=== PATIENT | female | born 1940 | race Caucasian/White ===

== ENCOUNTER → 2016-10-24 | Outpatient (CLI) | payer MEDICARE, BC ==
--- NOTE | 2016-10-24 11:42 | XR ---
EXAMINATION TYPE: XR chest 2V DATE OF EXAM: 10/24/2016 11:33 AM COMPARISON: 11/23/2015 TECHNIQUE: PA and lateral views submitted. HISTORY: Pneumonia FINDINGS: The lungs are clear and there is no pneumothorax, pleural effusion, or focal pneumonia. Hypertrophic and degenerative change spine noted. IMPRESSION: 1. No acute process.
== END ==
LOC: RADXRMAIN 11:12
PROVIDERS: ATTEND Family Medicine
DX: J18.9 Pneumonia, unspecified organism (principal)
CPT/HCPCS: 71020

== ENCOUNTER 2017-03-18 13:55 | Inpatient (IN) | payer MEDICARE, BC ==
[2017-03-18] MEDS ORDERED: IPRATROPIUM 0.5 MG/2.5 ML NEBU INHALATION STA (14:14)
[2017-03-18] MEDS ORDERED: SODIUM CHLORIDE 0.9% 1,000 ML IV STA ×2 (14:14)
[2017-03-18] MEDS ORDERED: ALBUTEROL NEBULIZED 2.5 MG/3 ML INHALATION STA (14:14)
[2017-03-18] MEDS ORDERED: methylPREDNISolone SOD SUCCI 125 MG/2 ML VIAL IV STA (14:16)
--- NOTE | 2017-03-18 14:16 | ED ---
General Adult HPI - General Chief complaint: Shortness of Breath Stated complaint: asthma Time Seen by Provider: 03/18/17 14:13 Source: patient, RN notes reviewed, old records reviewed Mode of arrival: wheelchair Limitations: no limitations - History of Present Illness Initial comments: This is a 76-year-old female earlier today for evaluation of shortness of breath. She was with cough and congestion, history of asthma history of COPD. Patient denies fever does admit to increased cough. No modifying medical no modifying medications at this time. No travel history. Patient has no recent hospital physicians, symptoms for about 2-3 days per family. Patient does have a history of pneumonia with difficult to control asthma and difficulty clear pneumonia. - Related Data Home Medications Medication Instructions Recorded Confirmed Levothyroxine Sodium [Synthroid] 137 mcg PO DAILY 09/22/15 03/18/17 metFORMIN HCL [Glucophage] 1,000 mg PO BID-W/MEALS 09/22/15 03/18/17 Hydrochlorothiazide 25 mg PO DAILY 11/02/15 03/18/17 Albuterol Inhaler [Ventolin Hfa 2 puff INHALATION RT-QID PRN 03/18/17 03/18/17 Inhaler] Albuterol Nebulized [Ventolin 2.5 mg INHALATION RT-TID 03/18/17 03/18/17 Nebulized] Bimatoprost [Lumigan .01% Ophth 1 drop RIGHT EYE HS 03/18/17 03/18/17 Soln] Diclofenac 0.1% Ophth Soln 1 drop LEFT EYE QID 03/18/17 03/18/17 [Voltaren 0.1% Ophth Soln] Ibuprofen [Motrin] 200 mg PO Q6HR PRN 03/18/17 03/18/17 diphenhydrAMINE HCL [Benadryl] 25 mg PO HS PRN 03/18/17 03/18/17 glipiZIDE XL [Glucotrol Xl] 5 mg PO BID 03/18/17 03/18/17 Allergies Allergy/AdvReac Type Severity Reaction Status Date / Time Sulfa (Sulfonamide Allergy Severe Anaphylaxis Verified 03/18/17 15:01 Antibiotics) tetanus and diphtheria Allergy Anaphylaxis Verified 03/18/17 15:01 toxoids Review of Systems ROS Statement: Those systems with pertinent positive or pertinent negative responses have been documented in the HPI. ROS Other: All systems not noted in ROS Statement are negative. Past Medical History Past Medical History: Asthma, Diabetes Mellitus, Eye Disorder, Osteoarthritis ( OA), Thyroid Disorder Additional Past Medical History / Comment(s): GLAUCOMA, BACK PAIN, SINUS PROBLEMS, PAST HX OF VERTIGO. History of Any Multi-Drug Resistant Organisms: None Reported Past Surgical History: Appendectomy, Hysterectomy, Joint Replacement Additional Past Surgical History / Comment(s): THYROIDECTOMY, RIGHT TOTAL HIP. ( L) eye surgery with stent. Past Anesthesia/Blood Transfusion Reactions: Motion Sickness, Postoperative Nausea & Vomiting (PONV) Additional Past Anesthesia/Blood Transfusion Reaction / Comment(s): DAUGHTER= PONV. DAUGHTER HAD PROBLEM WITH BLOOD TRANSFUSION BUT DOES NOT KNOW WHAT-HAD TO FOLLOW WITH RESAW OPERATOR. Past Psychological History: No Psychological Hx Reported Smoking Status: Never smoker - Past Family History Mother Family Medical History: No Reported History General Exam Limitations: no limitations General appearance: alert, in no apparent distress, anxious Head exam: Present: atraumatic, normocephalic, normal inspection Eye exam: Present: normal appearance, PERRL, EOMI. Absent: scleral icterus, conjunctival injection, periorbital swelling ENT exam: Present: normal exam, mucous membranes moist Neck exam: Present: normal inspection. Absent: tenderness, meningismus, lymphadenopathy Respiratory exam: Present: normal lung sounds bilaterally, wheezes, accessory muscle use, decreased breath sounds, prolonged expiratory. Absent: respiratory distress, rales, rhonchi, stridor Cardiovascular Exam: Present: regular rate, normal rhythm, normal heart sounds. Absent: systolic murmur, diastolic murmur, rubs, gallop, clicks GI/Abdominal exam: Present: soft, normal bowel sounds. Absent: distended, tenderness, guarding, rebound, rigid Extremities exam: Present: normal inspection, full ROM, normal capillary refill. Absent: tenderness, pedal edema, joint swelling, calf tenderness Back exam: Present: normal inspection Neurological exam: Present: alert, oriented X3, CN II-XII intact Psychiatric exam: Present: normal affect, normal mood Skin exam: Present: warm, dry, intact, normal color. Absent: rash Course Vital Signs 03/18/17 03/18/17 03/18/17 14:01 14:35 14:50 Temperature 98.4 F Pulse Rate 107 H 104 H 108 H Respiratory 18 Rate Blood Pressure 141/79 O2 Sat by Pulse 95 Oximetry 03/18/17 03/18/17 03/18/17 15:06 15:10 16:00 Temperature Pulse Rate 94 96 99 Respiratory 22 20 Rate Blood Pressure 162/77 158/78 O2 Sat by Pulse 99 95 Oximetry - Reevaluation(s) Reevaluation #1: 03/18/17 16:19 Patient does admit to be improved after breathing treatment, still complaining of mild chest tightness and occasional pain EKG Findings - EKG Comments: EKG Findings:: EKG shows normal sinus rhythm rate of 94, OH 176, QRS 98, QTc 460 Medical Decision Making - Medical Decision Making 76-year-old here with cough and congestion, or clicks. Production of sputum sample. She will be admitted for pneumonia, IV antibiotics and breathing treatments. - Lab Data Result diagrams: 03/18/17 14:27 03/18/17 14:27 Lab Results 03/18/17 03/18/17 03/18/17 Range/Units 14:27 14:27 14:27 WBC 8.8 (3.8-10.6) k/uL RBC 4.96 (3.80-5.40) m/uL Hgb 15.7 (11.4-16.0) gm/dL Hct 45.4 (34.0-46.0) % MCV 91.6 (80.0-100.0) fL MCH 31.7 (25.0-35.0) pg MCHC 34.6 (31.0-37.0) g/dL RDW 14.1 (11.5-15.5) % Plt Count 252 (150-450) k/uL Neutrophils % 58 % Lymphocytes % 25 % Monocytes % 4 % Eosinophils % 10 % Basophils % 1 % Neutrophils # 5.0 (1.3-7.7) k/uL Lymphocytes # 2.2 (1.0-4.8) k/uL Monocytes # 0.4 (0-1.0) k/uL Eosinophils # 0.9 H (0-0.7) k/uL Basophils # 0.1 (0-0.2) k/uL PT (9.0-12.0) sec INR (<1.2) APTT (22.0-30.0) sec D-Dimer (<0.60) mg/L FEU Sodium 143 (137-145) mmol/L Potassium 3.9 (3.5-5.1) mmol/L Chloride 107 (98-107) mmol/L Carbon Dioxide 22 (22-30) mmol/L Anion Gap 14 mmol/L BUN 11 (7-17) mg/dL Creatinine 0.50 L (0.52-1.04) mg/dL Est GFR (MDRD) Af Amer >60 (>60 ml/min/1.73 sqM) Est GFR (MDRD) Non-Af >60 (>60 ml/min/1.73 sqM) Glucose 104 H (74-99) mg/dL Calcium 9.6 (8.4-10.2) mg/dL Magnesium 1.8 (1.6-2.3) mg/dL Total Bilirubin 0.5 (0.2-1.3) mg/dL AST 29 (14-36) U/L ALT 52 (9-52) U/L Alkaline Phosphatase 74 (38-126) U/L Total Creatine Kinase 240 H (30-135) U/L CK-MB (CK-2) 3.5 H* (0.0-2.4) ng/mL CK-MB (CK-2) Rel Index 1.5 Troponin I <0.012 (0.000-0.034) ng/mL NT-Pro-B Natriuret Pep pg/mL Total Protein 6.9 (6.3-8.2) g/dL Albumin 4.3 (3.5-5.0) g/dL 03/18/17 03/18/17 Range/Units 14:27 14:27 WBC (3.8-10.6) k/uL RBC (3.80-5.40) m/uL Hgb (11.4-16.0) gm/dL Hct (34.0-46.0) % MCV (80.0-100.0) fL MCH (25.0-35.0) pg MCHC (31.0-37.0) g/dL RDW (11.5-15.5) % Plt Count (150-450) k/uL Neutrophils % % Lymphocytes % % Monocytes % % Eosinophils % % Basophils % % Neutrophils # (1.3-7.7) k/uL Lymphocytes # (1.0-4.8) k/uL Monocytes # (0-1.0) k/uL Eosinophils # (0-0.7) k/uL Basophils # (0-0.2) k/uL PT 9.6 (9.0-12.0) sec INR 0.9 (<1.2) APTT 22.6 (22.0-30.0) sec D-Dimer 0.72 H (<0.60) mg/L FEU Sodium (137-145) mmol/L Potassium (3.5-5.1) mmol/L Chloride (98-107) mmol/L Carbon Dioxide (22-30) mmol/L Anion Gap mmol/L BUN (7-17) mg/dL Creatinine (0.52-1.04) mg/dL Est GFR (MDRD) Af Amer (>60 ml/min/1.73 sqM) Est GFR (MDRD) Non-Af (>60 ml/min/1.73 sqM) Glucose (74-99) mg/dL Calcium (8.4-10.2) mg/dL Magnesium (1.6-2.3) mg/dL Total Bilirubin (0.2-1.3) mg/dL AST (14-36) U/L ALT (9-52) U/L Alkaline Phosphatase (38-126) U/L Total Creatine Kinase (30-135) U/L CK-MB (CK-2) (0.0-2.4) ng/mL CK-MB (CK-2) Rel Index Troponin I (0.000-0.034) ng/mL NT-Pro-B Natriuret Pep 44 pg/mL Total Protein (6.3-8.2) g/dL Albumin (3.5-5.0) g/dL - Radiology Data Radiology results: report reviewed (Test x-ray shows likely pneumonia, CTA chest shows positive pneumonia), image reviewed Disposition Clinical Impression: Acute exacerbation of chronic obstructive airways disease, Asthma with exacerbation, Community acquired pneumonia Disposition: ADMITTED IP TO THIS HOSP Condition: Good Referrals: Tarun Lindsay MD [Primary Care Provider] - 1-2 days
[2017-03-18 14:43] LABS: Basophils # (A) 0.1 k/uL (0-0.2); Basophils % (A) 1 %; CH 31.3; CHCM 34.3; Eosinophils # (A) 0.9 k/uL (0-0.7); Eosinophils % (A) 10 %; HCT 45.4 % (34.0-46.0); HDW 2.58; HGB 15.7 gm/dL (11.4-16.0); Luc # (Auto) 0.14; Luc % (Auto) 2; Lymphocytes # (A) 2.2 k/uL (1.0-4.8); Lymphocytes % (A) 25 %; MCH 31.7 pg (25.0-35.0); MCHC 34.6 g/dL (31.0-37.0); MCV 91.6 fL (80.0-100.0); Mean Platelet Volume 8.7; Monocytes # (A) 0.4 k/uL (0-1.0); Monocytes % (A) 4 %; Neutrophils % (A) 58 %; RBC 4.96 m/uL (3.80-5.40); RDW 14.1 % (11.5-15.5); WBC 8.8 k/uL (3.8-10.6); WBC (Perox) 7.89
[2017-03-18 14:55] LABS: INR 0.9 (<1.2); Partial Thromboplastin Time 22.6 sec (22.0-30.0); Prothrombin Time 9.6 sec (9.0-12.0)
[2017-03-18 15:05] LABS: Creatine Kinase 240 U/L (30-135)
[2017-03-18 15:08] LABS: ALT 52 U/L (9-52); AST 29 U/L (14-36); Alkaline Phosphatase 74 U/L (38-126); Anion Gap 14 mmol/L; Blood Urea Nitrogen 11 mg/dL (7-17); Calcium 9.6 mg/dL (8.4-10.2); Carbon Dioxide 22 mmol/L (22-30); Chloride 107 mmol/L (98-107); Glucose 104 mg/dL (74-99); Magnesium 1.8 mg/dL (1.6-2.3); Non-African American GFR(MDRD) >60 (>60 ml/min/1.73 sqM); Potassium 3.9 mmol/L (3.5-5.1); Sodium 143 mmol/L (137-145); Total Bilirubin 0.5 mg/dL (0.2-1.3); Total Protein 6.9 g/dL (6.3-8.2)
--- NOTE | 2017-03-18 15:09 | XR ---
EXAMINATION TYPE: XR chest 1V portable DATE OF EXAM: 03/18/2017 COMPARISON: 10/24/2016 HISTORY: Short of breath TECHNIQUE: Single frontal view of the chest is obtained. FINDINGS: There is slight elevation of the left diaphragm. The right lung is clear. There is no hear t failure. There are no hilar masses. There are chest leads. IMPRESSION: There is evidence for new minimal subsegmental atelectasis at the left lung base compare d to old exam.
[2017-03-18 15:17] LABS: Creatine Kinase MB 3.5 ng/mL (0.0-2.4); Troponin I <0.012 ng/mL (0.000-0.034)
[2017-03-18] MEDS ORDERED: RX INFO: IV CONTRAST WAS GIVEN 1 EACH MISC MISCELLANE PRN (15:18)
--- NOTE | 2017-03-18 15:56 | CT ---
EXAMINATION TYPE: CT angio chest DATE OF EXAM: 03/18/2017 3:42 PM COMPARISON: NONE HISTORY: Patient complains of chest pain, shortness of breath, and chest congestion x2 days. CT DLP: 385 mGycm Automated exposure control for dose reduction was used. CONTRAST: CTA scan of the thorax is performed with IV Contrast, patient injected with 100 mL of Omnipaque 350, pulmonary embolism protocol. There are 3-D post processed images.. FINDINGS: There is an 8 cm area of consolidation and atelectasis in the posterior and medial basal segment of t he left lower lobe. I see no pulmonary mass. There are no filling defects in the pulmonary arteries. There are a few bronchial lymph nodes that me asure up to 1 cm. There are paratracheal lymph nodes that measure up to 1 cm. There is no pericardial effusion. There is no pleural fluid. There is spurring in the thoracic spine. Ascending aorta measures 3.5 cm. There is no evidence of aortic dissection. There is a mild hiatal he rnia noted. IMPRESSION: NO EVIDENCE OF PULMONARY EMBOLISM. LEFT LOWER LOBE PNEUMONIA AND ATELECTASIS. SMALL HIATAL HERNIA.
[2017-03-18] MEDS ORDERED: PNEUMONIA PROTOCOL UTILIZED 1 EACH MISC PO PRN (16:09)
[2017-03-18] MEDS ORDERED: LEVOFLOXACIN 750MG-D5W PMX 750 MG in DEXTROSE/WATER 1 150ML.BAG IVPB STA (16:09)
[2017-03-18] MEDS ORDERED: PIPERACILLIN-TAZOBACTAM 3.375 GM in DEXTROSE/WATER 1 50ML.BAG IVPB STA (16:09)
[2017-03-18] MEDS: SODIUM CHLORIDE 0.9% 1,000 ML IV SCH (16:25)
[2017-03-18 17:24] VITALS: BMI 30.8
[2017-03-18] MEDS ORDERED: diphenhydrAMINE 25 MG CAP PO PRN (17:34)
--- NOTE | 2017-03-18 17:38 | P.HPIM ---
History of Present Illness 71-year-old female came in with compensative short of breath and cough with clear to green sputum production Going on for about 3 days patient does have history of asthma. Patient denied any fever chills patient doesn't have any leukocytosis but CT of the chest was done because of the mildly elevated d- dimer which did show left lower lobe air bronchogram and infiltrate consistent with pneumonia patient was given Zosyn and levofloxacin and Zosyn is being discontinued sputum cultures will be obtained patient systemic steroids will be cut down to oral steroids as patient has had significant improvement in shortness of breath although still has minimal wheezing. Patient denied any nausea vomiting dysuria. Review of Systems REVIEW OF SYSTEMS: CONSTITUTIONAL: No fever, no malaise, no fatigue. HEENT: No recent visual problems or hearing problems. Denied any sore throat. CARDIOVASCULAR: No chest pain, orthopnea, PND, no palpitations, no syncope. PULMONARY: No shortness of breath, no cough, no hemoptysis. GASTROINTESTINAL: No diarrhea, no nausea, no vomiting, no abdominal pain. Normoactive bowel sounds. NEUROLOGICAL: No headaches, no weakness, no numbness. HEMATOLOGICAL: Denies any bleeding or petechiae. GENITOURINARY: Denies any burning micturition, frequency, or urgency. MUSCULOSKELETAL/RHEUMATOLOGICAL: Denies any joint pain, swelling, or any muscle pain. ENDOCRINE: Denies any polyuria or polydipsia. The rest of the 14-point review of systems is negative. Past Medical History Past Medical History: Asthma, Diabetes Mellitus, Eye Disorder, Osteoarthritis ( OA), Thyroid Disorder Additional Past Medical History / Comment(s): GLAUCOMA, BACK PAIN, SINUS PROBLEMS, PAST HX OF VERTIGO. History of Any Multi-Drug Resistant Organisms: None Reported Past Surgical History: Appendectomy, Hysterectomy, Joint Replacement Additional Past Surgical History / Comment(s): THYROIDECTOMY, RIGHT TOTAL HIP. ( L) eye surgery with stent. 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 DAUGHTER HAD PROBLEM WITH BLOOD TRANSFUSION BUT DOES NOT KNOW WHAT-HAD TO FOLLOW WITH INDUCTION BRAZER. Past Psychological History: No Psychological Hx Reported Smoking Status: Never smoker Past Alcohol Use History: Rare Past Drug Use History: None Reported - Past Family History Mother Family Medical History: Cancer, Congestive Heart Failure (CHF), Diabetes Mellitus, Thyroid Disorder Additional Family Medical History / Comment(s): father had emphysema. brother had prostate cancer Medications and Allergies Home Medications Medication Instructions Recorded Confirmed Type Levothyroxine Sodium [Synthroid] 137 mcg PO DAILY 09/22/15 03/18/17 History metFORMIN HCL [Glucophage] 1,000 mg PO BID-W/MEALS 09/22/15 03/18/17 History Hydrochlorothiazide 25 mg PO DAILY 11/02/15 03/18/17 History Albuterol Inhaler [Ventolin Hfa 2 puff INHALATION RT-QID PRN 03/18/17 03/18/17 History Inhaler] Albuterol Nebulized [Ventolin 2.5 mg INHALATION RT-TID 03/18/17 03/18/17 History Nebulized] Bimatoprost [Lumigan .01% Ophth 1 drop RIGHT EYE HS 03/18/17 03/18/17 History Soln] Diclofenac 0.1% Ophth Soln 1 drop LEFT EYE QID 03/18/17 03/18/17 History [Voltaren 0.1% Ophth Soln] Ibuprofen [Motrin] 200 mg PO Q6HR PRN 03/18/17 03/18/17 History diphenhydrAMINE HCL [Benadryl] 25 mg PO HS PRN 03/18/17 03/18/17 History glipiZIDE XL [Glucotrol Xl] 5 mg PO BID 03/18/17 03/18/17 History Allergies Allergy/AdvReac Type Severity Reaction Status Date / Time Sulfa (Sulfonamide Allergy Severe Anaphylaxis Verified 03/18/17 15:01 Antibiotics) tetanus and diphtheria Allergy Anaphylaxis Verified 03/18/17 15:01 toxoids Physical Exam Vitals: Vital Signs Temp Pulse Pulse Resp BP BP Pulse Ox 03/18/17 16:52 18 03/18/17 16:34 98.4 F 100 98 16 158/78 155/80 93 L 03/18/17 16:09 95 03/18/17 16:00 99 20 158/78 95 03/18/17 15:10 96 03/18/17 15:06 94 22 162/77 99 03/18/17 14:50 108 H 03/18/17 14:35 104 H 03/18/17 14:01 98.4 F 107 H 18 141/79 95 Intake and Output 03/18/17 03/18/17 03/18/17 06:59 14:59 22:59 Other: Voiding Method Toilet Weight 78.925 kg 78.92 kg Patient Weight 03/19/17 06:59 Weight 78.92 kg PHYSICAL EXAMINATION: GENERAL: The patient is alert and oriented x3, not in any acute distress. Well developed, well nourished. HEENT: Pupils are round and equally reacting to light. EOMI. No scleral icterus. No conjunctival pallor. Normocephalic, atraumatic. No pharyngeal erythema. No thyromegaly. CARDIOVASCULAR: S1 and S2 present. No murmurs, rubs, or gallops. PULMONARY: Fairly good air entry into bilateral lung santana minimal expiratory wheezing was appreciated that is possibly in a bronchogram and egophony on the left lower lung santana consistent with CT findings. ABDOMEN: Soft, nontender, nondistended, normoactive bowel sounds. No palpable organomegaly. MUSCULOSKELETAL: No joint swelling or deformity. EXTREMITIES: No cyanosis, clubbing, or pedal edema. NEUROLOGICAL: Gross neurological examination did not reveal any focal deficits. SKIN: No rashes. Results CBC & Chem 7: 03/18/17 14:27 03/18/17 14:27 Labs: Abnormal Lab Results - Last 24 Hours (Table) 03/18/17 03/18/17 03/18/17 Range/Units 14:27 14:27 14:27 Eosinophils # 0.9 H (0-0.7) k/uL D-Dimer (<0.60) mg/L FEU Creatinine 0.50 L (0.52-1.04) mg/dL Glucose 104 H (74-99) mg/dL Total Creatine Kinase 240 H (30-135) U/L CK-MB (CK-2) 3.5 H* (0.0-2.4) ng/mL 03/18/17 Range/Units 14: Eosinophils # (0-0.7) k/uL D-Dimer 0.72 H (<0.60) mg/L FEU Creatinine (0.52-1.04) mg/dL Glucose (74-99) mg/dL Total Creatine Kinase (30-135) U/L CK-MB (CK-2) (0.0-2.4) ng/mL Assessment and Plan Plan: #1 acute hypoxic respiratory failure secondary to left lower lobe pneumonia, patient will be on levofloxacin and Zosyn will be discontinued. Patient also has asthma exacerbation. #2 acute exacerbation of asthma, patient appears to have chronic intermittent asthma: Patient will continue on systemic steroids and albuterol inhalational. #3 type 2 diabetes mellitus: Patient will be started on sliding scale insulin and patient's blood sugars are expected to go up patient will be resumed on her oral hypoglycemic regimen. 4 severe osteoarthritis #5 hypothyroidism
[2017-03-18 18:07] LABS: Glucose,Whole Blood 188 mg/dL (75-99)
[2017-03-18] MEDS: ENOXAPARIN 40 MG/0.4 ML SYRINGE SQ SCH (18:34)
[2017-03-18] MEDS: DICLOFENAC 0.1% OPHTH SOLN 2.5 ML BTL LEFT EYE SCH ×2 (18:36→21:37)
[2017-03-18 20:01] LABS: Glucose,Whole Blood 221 mg/dL (75-99)
[2017-03-18] MEDS: IPRATROPIUM-ALBUTEROL 3 ML NEB INHALATION SCH (20:39)
[2017-03-18] MEDS ORDERED: LATANOPROST 0.005% OPHTH DROPS 2.5 ML BTL RIGHT EYE SCH (21:00)
[2017-03-18] MEDS: INSULIN LISPRO (humaLOG) 300 UNIT/3 ML VIAL SQ SCH (21:37)
[2017-03-18] MEDS: glipiZIDE 5 MG TAB PO SCH (21:38)
[2017-03-18 21:49] LABS: Hemoglobin A1C 7.1 % (4.2-6.1)
[2017-03-18 22:56] VITALS: RESP 16
[2017-03-19] MEDS ORDERED: PIPERACILLIN-TAZOBACTAM 3.375 GM in DEXTROSE/WATER 1 50ML.BAG IVPB SCH
[2017-03-19] MEDS: SODIUM CHLORIDE 0.9% 1,000 ML IV SCH ×2 (05:43→12:09)
[2017-03-19] MEDS ORDERED: LEVOTHYROXINE 137 MCG TAB PO SCH (06:30)
[2017-03-19] MEDS: glipiZIDE 5 MG TAB PO SCH (07:23)
[2017-03-19] MEDS: ENOXAPARIN 40 MG/0.4 ML SYRINGE SQ SCH (07:23)
[2017-03-19] MEDS: DICLOFENAC 0.1% OPHTH SOLN 2.5 ML BTL LEFT EYE SCH ×2 (07:24→12:58)
[2017-03-19] MEDS ORDERED: metFORMIN 500 MG TAB PO SCH (07:30)
[2017-03-19 07:56] LABS: Glucose,Whole Blood 133 mg/dL (75-99)
[2017-03-19] MEDS: IPRATROPIUM-ALBUTEROL 3 ML NEB INHALATION SCH ×2 (08:07→11:57)
[2017-03-19] MEDS: INSULIN LISPRO (humaLOG) 300 UNIT/3 ML VIAL SQ SCH ×2 (08:19→12:53)
[2017-03-19 08:50] VITALS: BP 154/78; TEMP 97.7
[2017-03-19] MEDS ORDERED: predniSONE 20 MG TAB PO SCH (09:00)
--- NOTE | 2017-03-19 09:53 | XR ---
EXAMINATION TYPE: XR chest 2V DATE OF EXAM: 03/19/2017 COMPARISON: 03/18/2017 HISTORY: Shortness of breath TECHNIQUE: Frontal and lateral views of the chest are obtained. FINDINGS: Scattered senescent parenchymal changes noted. Hyperinflation compatible with COPD. No evidence for infiltrate. No evidence for atelectasis. Heart size is stable. Mediastinal structures are stable and grossly unremarkable. No evidence for hilar prominence. Degenerative changes dorsal spine. IMPRESSION: 1. No evidence for acute pulmonary disease.
--- NOTE | 2017-03-19 10:28 | P.DS ---
Providers Date of admission: 03/18/17 16:19 Attending physician: Aditya Grewal Primary care physician: Tarun Lindsay [facility] Course: 71-year-old female came in with compensative short of breath and cough with clear to green sputum production Going on for about 3 days patient does have history of asthma. Patient denied any fever chills patient doesn't have any leukocytosis but CT of the chest was done because of the mildly elevated d- dimer which did show left lower lobe air bronchogram and infiltrate consistent with pneumonia patient was given Zosyn and levofloxacin and Zosyn is being discontinued sputum cultures will be obtained patient systemic steroids will be cut down to oral steroids as patient has had significant improvement in shortness of breath although still has minimal wheezing. Patient denied any nausea vomiting dysuria. 03/19/2017 Patient is combining of chest pressure very minimal impairment compatible yesterday but patient has good air entry into bilateral lung santana no significant wheezing up and was appreciated will ablate the patient in hallways patient is saturating well patient will be discharged today on weaning dose of steroids and levofloxacin for about a week. GENERAL: The patient is alert and oriented x3, not in any acute distress. Well developed, well nourished. HEENT: Pupils are round and equally reacting to light. EOMI. No scleral icterus. No conjunctival pallor. Normocephalic, atraumatic. No pharyngeal erythema. No thyromegaly. CARDIOVASCULAR: S1 and S2 present. No murmurs, rubs, or gallops. PULMONARY: Fairly good air entry into bilateral lung santana minimal expiratory wheezing was appreciated that is possibly in a bronchogram and egophony on the left lower lung santana consistent with CT findings. ABDOMEN: Soft, nontender, nondistended, normoactive bowel sounds. No palpable organomegaly. MUSCULOSKELETAL: No joint swelling or deformity. EXTREMITIES: No cyanosis, clubbing, or pedal edema. NEUROLOGICAL: Gross neurological examination did not reveal any focal deficits. SKIN: No rashes. #1 acute hypoxic respiratory failure secondary to left lower lobe pneumonia, patient will be on levofloxacin and patient will be discharged on levofloxacin for about a week Patient also has asthma exacerbation. #2 acute exacerbation of asthma, patient appears to have chronic intermittent asthma: Patient will continue on systemic steroids and albuterol inhalational. #3 type 2 diabetes mellitus: Patient will be started on sliding scale insulin and patient's blood sugars are expected to go up patient will be resumed on her oral hypoglycemic regimen. 4 severe osteoarthritis #5 hypothyroidism Patient Condition at Discharge: Good Plan - Discharge Summary New Discharge Prescriptions: New Budesonide-Formot 160-4.5 Mcg [Symbicort 160-4.5 Mcg Inhaler] 2 puff INHALATION BID #1 inhaler Levofloxacin [Levaquin] 500 mg PO DAILY #7 tab predniSONE 10 mg PO DAILY #30 tab No Action metFORMIN HCL [Glucophage] 1,000 mg PO BID-W/MEALS Levothyroxine Sodium [Synthroid] 137 mcg PO DAILY Hydrochlorothiazide 25 mg PO DAILY Diclofenac 0.1% Ophth Soln [Voltaren 0.1% Ophth Soln] 1 drop LEFT EYE QID Bimatoprost [Lumigan .01% Ophth Soln] 1 drop RIGHT EYE HS Albuterol Nebulized [Ventolin Nebulized] 2.5 mg INHALATION RT-TID Albuterol Inhaler [Ventolin Hfa Inhaler] 2 puff INHALATION RT-QID PRN PRN Reason: Shortness Of Breath diphenhydrAMINE HCL [Benadryl] 25 mg PO HS PRN PRN Reason: Allergy Symptoms Ibuprofen [Motrin] 200 mg PO Q6HR PRN PRN Reason: Pain glipiZIDE XL [Glucotrol Xl] 5 mg PO BID Discharge Medication List Levothyroxine Sodium [Synthroid] 137 mcg PO DAILY 09/22/15 [History] metFORMIN HCL [Glucophage] 1,000 mg PO BID-W/MEALS 09/22/15 [History] Hydrochlorothiazide 25 mg PO DAILY 11/02/15 [History] Albuterol Inhaler [Ventolin Hfa Inhaler] 2 puff INHALATION RT-QID PRN 03/18/17 [ History] Albuterol Nebulized [Ventolin Nebulized] 2.5 mg INHALATION RT-TID 03/18/17 [ History] Bimatoprost [Lumigan .01% Ophth Soln] 1 drop RIGHT EYE HS 03/18/17 [History] Diclofenac 0.1% Ophth Soln [Voltaren 0.1% Ophth Soln] 1 drop LEFT EYE QID [History] Ibuprofen [Motrin] 200 mg PO Q6HR PRN 03/18/17 [History] diphenhydrAMINE HCL [Benadryl] 25 mg PO HS PRN 03/18/17 [History] glipiZIDE XL [Glucotrol Xl] 5 mg PO BID 03/18/17 [History] Budesonide-Formot 160-4.5 Mcg [Symbicort 160-4.5 Mcg Inhaler] 2 puff INHALATION BID #1 inhaler 03/19/17 [Rx] Levofloxacin [Levaquin] 500 mg PO DAILY #7 tab 03/19/17 [Rx] predniSONE 10 mg PO DAILY #30 tab 03/19/17 [Rx] Follow up Appointment(s)/Referral(s): Tarun Lindsay MD [Primary Care Provider] - 3 Days Discharge Disposition: HOME SELF-CARE
[2017-03-19 11:55] LABS: Glucose,Whole Blood 161 mg/dL (75-99)
[2017-03-19 12:01] VITALS: PULSE 92
[2017-03-19] MEDS ORDERED: LEVOFLOXACIN 750MG-D5W PMX 750 MG in DEXTROSE/WATER 1 150ML.BAG IVPB SCH (16:14)
== END 2017-03-19 14:40 | disposition home or self-care (01) | DRG 190 ==
LOC: EC 13:55 → 5MS5E 16:19
PROVIDERS: ADMIT Hospitalist; ATTEND Hospitalist
DX: J44.0 Chronic obstructive pulmonary disease with (acute) lower respiratory infection (principal); J96.01 Acute respiratory failure with hypoxia; J18.9 Pneumonia, unspecified organism; J45.21 Mild intermittent asthma with (acute) exacerbation; J44.1 Chronic obstructive pulmonary disease with (acute) exacerbation; Z82.5 Family history of asthma and other chronic lower respiratory diseases; E03.9 Hypothyroidism, unspecified; E11.9 Type 2 diabetes mellitus without complications; H40.9 Unspecified glaucoma; M19.91 Primary osteoarthritis, unspecified site; Z87.01 Personal history of pneumonia (recurrent); Z79.84 Long term (current) use of oral hypoglycemic drugs; Z79.899 Other long term (current) drug therapy
CPT/HCPCS: 36415; 71010; 71020; 71275; 80053; 82550; 82553; 83036; 83735; 83880; 84484; 85025; 85379; 85610; 85730; 87040; 87070; 87205; 93005; 94640; 94644; 96361; 96374; 99285

== ENCOUNTER → 2017-09-12 | Outpatient (CLI) | payer MEDICARE, BC ==
[2017-09-13 12:25] LABS: Immunoglobulin M 25.7 mg/dL (40.0-280.0)
== END | disposition home or self-care (01) ==
LOC: LABWHC1 11:28
PROVIDERS: ATTEND Allergy & Immunology
DX: J45.40 Moderate persistent asthma, uncomplicated (principal)
CPT/HCPCS: 36415; 82784; 82785

== ENCOUNTER → 2017-12-19 | Outpatient (CLI) | payer MEDICARE, BC | END | disposition home or self-care (01) | LOC: LABPAT 10:07 | PROVIDERS: ATTEND Orthopaedic Surgery | DX: Z01.812 Encounter for preprocedural laboratory examination (principal) | CPT/HCPCS: 87070 ==

== ENCOUNTER 2018-01-08 05:34 | Inpatient (IN) | payer MEDICARE, BC ==
[2017-12-28 11:54] VITALS: BMI 26.8
--- NOTE | 2018-01-07 09:20 | HP ---
HISTORY AND PHYSICAL REASON FOR ADMISSION: Surgery scheduled for 01/08/2018 HISTORY OF PRESENT ILLNESS: Yuridia Olivares is a 77-year-old patient seen with symptomatic right knee osteoarthritis. After having treatment options discussed, she elected to proceed with right total knee arthroplasty. Consent regarding procedure obtained. Medical clearance was provided by Dr. Lindsay. PAST MEDICAL HISTORY: [id number] diabetes, hypothyroidism, hypertension, asthma. PAST SURGICAL HISTORY: Right total hip arthroplasty, appendectomy, hysterectomy, tonsillectomy. MEDICATIONS: Glipizide, hydrochlorothiazide, levothyroxine, metformin, Ventolin. ALLERGIES: SULFA, TETANUS. SOCIAL HISTORY: Patient denies current tobacco use. PHYSICAL EXAMINATION: Evaluation of the right knee range of motion is 0-120 degrees. There is tenderness along the medial joint line. Positive medial Sahra's. Crepitus along the medial patellofemoral compartments. Range of motion. Pain with patellofemoral compression. Ligaments are stable. Hip rotation is without pain. Distal neurovascular exam is intact. RADIOGRAPHS: Right knee radiographs revealed moderate to severe medial compartment osteoarthritis and severe patellofemoral compartment osteoarthritis. IMPRESSION: 1. Right knee osteoarthritis. 2. Hypertension. 3. Hypothyroidism. 4. [id number] diabetes. 5. Asthma. PLAN: Right total knee arthroplasty. Surgery is scheduled for 01/08/2018. MMODL / IJN: [id number] /
[~2018-01-08 05:34] MED LIST: DEXAMETHASONE SOD PHOSPHATE 10 MG/ML 1 ML VIAL IV ONE; MIDAZOLAM 2 MG/2 ML VIAL IV PRN; ONDANSETRON 4 MG/2 ML VIAL IVP ONE; fentaNYL (PF) 50 MCG/ML 2 ML AMP IV PRN
[2018-01-08] MEDS ORDERED: ceFAZolin IN SWFI 2 GM/20 ML SYRINGE IVP ONE (06:00)
[2018-01-08] MEDS ORDERED: TRANEXAMIC ACID 1,000 MG in SODIUM CHLORIDE 0.9% 50 ML IVPB ONE ×4 (06:00)
[2018-01-08] MEDS ORDERED: ACETAMINOPHEN TAB 500 MG TAB PO ONE (06:00)
[2018-01-08] MEDS ORDERED: MELOXICAM 7.5 MG TAB PO ONE (06:00)
[2018-01-08 06:41] LABS: Glucose,Whole Blood 117 mg/dL (75-99)
[2018-01-08] MEDS: LACTATED RINGERS 1,000 ML IV SCH (06:50)
[2018-01-08] MEDS ORDERED: MIDAZOLAM 2 MG/2 ML VIAL ONE (07:25)
[2018-01-08] MEDS ORDERED: SODIUM CHLORIDE 0.9% 100 ML BAG ONE (07:25)
[2018-01-08] MEDS ORDERED: TRANEXAMIC ACID 1,000 MG/10 ML VIAL ONE (07:25)
[2018-01-08] MEDS ORDERED: diphenhydrAMINE 50 MG/ML 1 ML VIAL ONE (07:25)
[2018-01-08] MEDS ORDERED: fentaNYL (PF) 50 MCG/ML 2 ML AMP ONE (07:25)
[2018-01-08] MEDS ORDERED: ceFAZolin 3,000 MG in SODIUM CHLORIDE 0.9% IRRIGATIO 3,000 ML IRRIGATION ONE (07:30)
[2018-01-08] MEDS: ROPIVACAINE 246.25 MG, EPINEPHrine 0.5 MG, KETOROLAC 30 MG, cloNIDine HCL/PF 80 MCG, WA... MISCELLANE ONE ×10 (08:06→10:41)
[2018-01-08] MEDS ORDERED: LACTATED RINGERS 1,000 ML IV ONE (09:21)
[2018-01-08] MEDS ORDERED: MORPHINE SULFATE 4 MG/ML SYRINGE IVP PRN ×3 (09:27)
[2018-01-08] MEDS ORDERED: NALOXONE 0.4 MG/ML 1 ML VIAL IV PRN (09:27)
--- NOTE | 2018-01-08 09:27 | P.OP ---
Date of Procedure: 01/08/18 Preoperative Diagnosis: Right knee osteoarthritis Postoperative Diagnosis: Right knee osteoarthritis Procedure(s) Performed: Right total knee arthroplasty Implants: 1. Microport evolution MP CS/CR size 5 right cemented femur 2. Microport evolution MP healed size 5 right cemented tibial base 3. Microport evolution MP CS size 5 right 10 mm polyethylene tibial insert 4. Microport advance all polyethylene 32 mm cemented patella Anesthesia: regional (Adductor canal catheter), local, spinal Surgeon: Tim Glynn Mortgage Loan Counselor #1: Brando Pizarro Estimated Blood Loss (ml): 45 Pathology: other (Bone) Condition: stable Disposition: PACU Indications for Procedure: 77-year-old patient seen with symptomatic right knee osteoarthritis. After treatment options were discussed, she elected to proceed with total knee arthroplasty Operative Findings: See description of procedure Description of Procedure: Patient was taken to the operative suite after having and adductor canal catheter placed by the department of anesthesia. Patient underwent a spinal anesthetic by the department of anesthesia. Patient was given preoperative IV intake antibiotics and TXA. A well-padded tourniquet was placed about the right lower extremity. The lower extremity was then prepped and draped in the normal sterile orthopedic fashion. The extremity was elevated, a tourniquet was insufflated to 300. A standard anterior incision was made sharply through skin. Dissection was taken down through the subcutaneous soft tissues down to the extensor mechanism. A medial arthrotomy was performed, patella was everted and knee was flexed. There was advanced osteoarthritis noted. A proximal tibial cutting guide was positioned. Proximal tibial cut was made. A distal intramedullary femoral cutting guide was positioned, distal femoral cut made. We placed the appropriate sizing guide and selected the appropriate size. A distal 4-in-1 femoral cutting block was positioned, distal femoral cuts were made. We now placed a trial femoral component into position, along with an appropriate size tibial tray and insert. We now took the knee through range of motion and had full extension good flexion and good overall soft tissue balance noted. The patella was everted and a flush cut made with patellar quad tendon. We templated the patella, appropriate drill holes were made. An appropriate trial patella was positioned, knee was taken through full range of motion with the patella tracking very nicely. The trial patella was removed. Drill holes were made through the femoral component. All trial components were removed after marking off the appropriate rotation of the tibia. Retractors were now positioned along the proximal tibia. An appropriate keel punch was made with the appropriate size tibial guide. At this point appropriate size implants were chosen and opened. The joint was irrigated copiously with pulse lavage mechanical irrigation. The deep soft tissues were infiltrated local analgesic. We mixed antibiotic methylmethacrylate. Once the methyl methacrylate was ready, the tibial component was cemented into place removing any excess methylmethacrylate. The femoral component was cemented into place removing the removing any excess methylmethacrylate. We then inserted the appropriate size polyethylene tibial insert. We made sure that it was locked into position. We took the knee into full extension, and then back in a flexion making sure we had removed any excess methylmethacrylate. The patellar component was then cemented down and secured with clamp. Excess methylmethacrylate removed. We kept the knee in full extension, patellar clamp in position until methylmethacrylate had hardened. Once it had hardened the patellar clamp was removed. The knee was taken through full range of motion. The patella tracked nicely. There was good soft tissue balancing. The tourniquet was now released. Additional hemostasis was achieved via electrocautery. A second gram of TXA was given. The superficial soft tissues were infiltrated local analgesic. The wound was irrigated with pulse lavage mechanical irrigation. The extensor mechanism was repaired with Vicryl. We checked the repair with range of motion and it was stable. The subcutaneous soft tissues were repaired with Vicryl in layers. The skin was approximated with pernio/Dermabond. Sterile dressings were applied followed by loose web roll and Ellis bandage. The patient was transferred to a bed, and taken to recovery in stable and satisfactory condition. Rosalino MATTA assisted with the procedure.
[2018-01-08] MEDS ORDERED: ROPIVACAINE 1,100 MG, SODIUM CHLORIDE 0.9% 330 ML MISCELLANE PRN ×2 (10:00)
--- NOTE | 2018-01-08 10:06 | P.ONQ ---
Anesthesiology Proc Note - PNB - Peripheral Nerve Block Performed Right Adductor Canal Indication: Acute Post-Operative Pain, Dx/Pain Location (Right Knee) Specifically requested for management of pain by : Tim Glynn Sedation Type: Sedate with meaningful contact maintained Preparation: Sterile Dressing Position: Supine Catheter: Indwelling Needle Types: Other (see comment) (Pajunk) Needle Size: 100mm (4"), Other (see comment) (Pajunk) Needle Gauge: 18 Technique: Ultrasound Injectate: 0.5% Ropivacaine (see comment for volume) (30cc) Blood Aspirated: No Pain Paresthesia on Injection Noted: No Resistance on Injection: Normal Events: Uneventful and Well Tolerated
--- NOTE | 2018-01-08 10:16 | XR ---
Limited right knee HISTORY: Status post right knee arthroplasty 2 views of the right knee No comparisons Patient is status post right knee arthroplasty. Lucency is present in the soft tissues compatible wit h postop state. There is anatomic alignment. IMPRESSION: Orthopedic follow-up.
[2018-01-08] MEDS: SODIUM CHLORIDE 0.9% 1,000 ML IV SCH (11:04)
[2018-01-08 11:42] LABS: Glucose,Whole Blood 183 mg/dL (75-99)
[2018-01-08] MEDS: traMADol 50 MG TAB PO SCH ×3 (13:34→21:44)
[2018-01-08] MEDS: ceFAZolin IN SWFI 2 GM/20 ML SYRINGE IVP SCH (15:50)
[2018-01-08] MEDS ORDERED: ALBUTEROL NEBULIZED 2.5 MG/3 ML INHALATION PRN (16:34)
[2018-01-08 17:06] LABS: Glucose,Whole Blood 208 mg/dL (75-99)
[2018-01-08] MEDS: metFORMIN 500 MG TAB PO SCH (17:55)
[2018-01-08] MEDS: INSULIN ASPART 100 UNIT/ML 1 ML 10 ML VIAL SQ SCH ×2 (17:56→21:45)
--- NOTE | 2018-01-08 18:05 | P.CONS ---
History of Present Illness - Reason for Consult Consult date: 01/08/18 Medication/medical management. - Chief Complaint Knee pain. - History of Present Illness This is a history of physical 77-year-old white female coming in for knee DJD. She hasn't underlying history of NIDDM which is fairly stable. Minimal pain is noted. She is starting ambulation at this time. No sniffing chest pain or shortness of breath. No nausea, vomiting or diarrhea is stated. Review of Systems Constitutional: Denies chills, Denies fever Eyes: denies blurred vision, denies pain Ears, nose, mouth and throat: Denies headache, Denies sore throat Cardiovascular: Reports chest pain, Denies palpitations Respiratory: Denies cough Gastrointestinal: Denies abdominal pain, Denies diarrhea, Denies nausea, Denies vomiting Genitourinary: Denies dysuria, Denies hematuria Musculoskeletal: Denies myalgias Past Medical History Past Medical History: Asthma, Diabetes Mellitus, Eye Disorder, Hypertension, Osteoarthritis (OA), Thyroid Disorder Additional Past Medical History / Comment(s): GLAUCOMA, BACK PAIN, SINUS PROBLEMS, PAST HX OF VERTIGO. History of Any Multi-Drug Resistant Organisms: None Reported Past Surgical History: Appendectomy, Hysterectomy, Joint Replacement Additional Past Surgical History / Comment(s): THYROIDECTOMY, RIGHT TOTAL HIP. ( L) eye surgery with stent. 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 Past Psychological History: No Psychological Hx Reported Smoking Status: Never smoker Past Alcohol Use History: Rare Past Drug Use History: None Reported - Past Family History Mother Family Medical History: Cancer, Congestive Heart Failure (CHF), Diabetes Mellitus, Thyroid Disorder Additional Family Medical History / Comment(s): father had emphysema. brother had prostate cancer Medications and Allergies Home Medications Medication Instructions Recorded Confirmed Type Levothyroxine Sodium [Synthroid] 137 mcg PO DAILY 09/22/15 01/08/18 History metFORMIN HCL [Glucophage] 1,000 mg PO BID-W/MEALS 09/22/15 01/08/18 History Hydrochlorothiazide 25 mg PO DAILY 11/02/15 01/08/18 History Albuterol Inhaler [Ventolin Hfa 2 puff INHALATION RT-QID PRN 03/18/17 01/08/18 History Inhaler] Albuterol Nebulized [Ventolin 2.5 mg INHALATION RT-TID PRN 03/18/17 01/08/18 History Nebulized] glipiZIDE XL [Glucotrol Xl] 5 mg PO BID 03/18/17 01/08/18 History ALPRAZolam [Xanax] 0.25 mg PO BID PRN 12/28/17 01/08/18 History HYDROcodone/APAP 5-325MG [[place] 1 tab PO Q6HR PRN 12/28/17 01/08/18 History 5-325] Meclizine [Antivert] 25 mg PO BID PRN 12/28/17 01/08/18 History Mometasone/Formoterol [Dulera 200 2 puff INHALATION RT-BID 12/28/17 01/08/18 History Mcg/5 Mcg Inhaler] Travoprost [Travatan Z 0.004%] 1 drop BOTH EYES HS 12/28/17 01/08/18 History predniSONE 50 mg PO DAILY PRN 01/08/18 01/08/18 History Allergies Allergy/AdvReac Type Severity Reaction Status Date / Time Sulfa (Sulfonamide Allergy Severe Anaphylaxis Verified 01/08/18 10:01 Antibiotics) peanut Allergy Anaphylaxis Verified 01/08/18 10:01 propofol Allergy Anaphylaxis Verified 01/08/18 10:01 soy Allergy Anaphylaxis Verified 01/08/18 10:01 Physical Exam Vitals: Vital Signs Temp Pulse Pulse Resp BP Pulse Ox 01/08/18 13:00 78 16 122/68 94 L 01/08/18 12:45 75 16 119/79 94 L 01/08/18 12:30 66 16 115/77 95 01/08/18 12:15 65 16 114/69 95 01/08/18 12:00 75 16 120/71 94 L 01/08/18 11:45 74 16 100/63 94 L 01/08/18 11:30 77 16 97/60 96 01/08/18 11:15 71 16 111/68 95 01/08/18 11:00 97.2 F L 77 16 121/67 95 01/08/18 10:30 67 16 108/58 94 L 05/14/18 10:15 72 16 121/57 97 01/08/18 10:00 69 16 116/55 100 01/08/18 09:46 98.1 F 71 12 134/64 100 01/08/18 06:50 97.6 F 73 16 148/79 96 Intake and Output 01/08/18 01/08/18 01/08/18 06:59 14:59 22:59 Intake Total 300 1001 Output Total 45 Balance 300 956 Intake: IV 300 1001 Sodium Chloride 0.9% 1, 200 000 ml @ 50 mls/hr IV . Q20H [facility] Rx#:[id number] Output: Estimated Blood Loss 45 Other: # Voids 1 Weight 69.853 kg - Constitutional General appearance: no acute distress - EENT Eyes: EOMI - Neck Neck: no lymphadenopathy - Respiratory Respiratory: bilateral: CTA - Cardiovascular Rhythm: regular Heart sounds: normal: S1, S2 Abnormal Heart Sounds: no S3 Gallop - Gastrointestinal General gastrointestinal: soft, no tenderness - Neurologic Neurologic: CNII-XII intact - Psychiatric Psychiatric: A&O x's 3, appropriate affect, intact judgment & insight Results Labs: Abnormal Lab Results - Last 24 Hours (Table) 01/08/18 01/08/18 01/08/18 Range/Units 06:37 11:35 17:02 POC Glucose (mg/dL) 117 H 183 H 208 H (75-99) mg/dL Assessment and Plan (1) Primary osteoarthritis of knee Current Visit: Yes Status: Acute Code(s): M17.10 - UNILATERAL PRIMARY OSTEOARTHRITIS, UNSPECIFIED KNEE SNOMED Code(s): 356366822 (2) Asthma Current Visit: No Status: Chronic Code(s): J45.909 - UNSPECIFIED ASTHMA, UNCOMPLICATED SNOMED Code(s): 208258427 (3) Diabetes Status: Chronic Code(s): E11.9 - TYPE 2 DIABETES MELLITUS WITHOUT COMPLICATIONS SNOMED Code(s): 78276273 Plan: Continue standard postop ulnar toilet. Reconcile home medications. Insulin sliding scale as necessary. Check CBC and CMP in a.m. We'll continue to follow. Hopefully discharge in next 24-48 hours or Otherwise, she is a full code. Time with Patient: Less than 30
[2018-01-08] MEDS: FORMOTEROL INHALATION SCH (19:10)
[2018-01-08] MEDS: MOMETASONE INHALATION SCH (19:10)
[2018-01-08 20:46] LABS: Glucose,Whole Blood 122 mg/dL (75-99)
[2018-01-08] MEDS: TRAVOPROST BOTH EYES SCH (21:43)
[2018-01-08] MEDS: ENOXAPARIN 30 MG/0.3 ML SYRINGE SQ SCH (21:44)
[2018-01-08] MEDS: glipiZIDE 5 MG TAB PO SCH (21:44)
[2018-01-08] MEDS: ALPRAZolam 0.25 MG TAB PO PRN (21:45)
[2018-01-08] MEDS: SENNOSIDES-DOCUSATE SODIUM 1 EACH TAB PO SCH (21:46)
[2018-01-08] MEDS: HYDROcodone/APAP 7.5-325MG 1 EACH TAB PO PRN (23:11)
[2018-01-09] MEDS: ceFAZolin IN SWFI 2 GM/20 ML SYRINGE IVP SCH (01:35)
[2018-01-09] MEDS: SODIUM CHLORIDE 0.9% 1,000 ML IV SCH (01:45)
[2018-01-09] MEDS: LACTATED RINGERS 1,000 ML IV SCH (04:50)
[2018-01-09] MEDS: HYDROcodone/APAP 7.5-325MG 1 EACH TAB PO PRN ×3 (06:10→21:23)
[2018-01-09] MEDS: LEVOTHYROXINE 137 MCG TAB PO SCH (06:11)
[2018-01-09 07:05] LABS: Glucose,Whole Blood 93 mg/dL (75-99)
[2018-01-09 07:28] LABS: Basophils % (A) 0 %; Eosinophils # (A) 0.1 k/uL (0-0.7); Eosinophils % (A) 1 %; HCT 36.5 % (34.0-46.0); HGB 11.8 gm/dL (11.4-16.0); Lymphocytes # (A) 2.4 k/uL (1.0-4.8); Lymphocytes % (A) 26 %; MCH 28.5 pg (25.0-35.0); MCHC 32.2 g/dL (31.0-37.0); MCV 88.6 fL (80.0-100.0); Mean Platelet Volume 7.7; Monocytes # (A) 0.5 k/uL (0-1.0); Monocytes % (A) 6 %; Neutrophils # (A) 6.2 k/uL (1.3-7.7); Neutrophils % (A) 65 %; Platelet Count 254 k/uL (150-450); RBC 4.12 m/uL (3.80-5.40); RDW 13.8 % (11.5-15.5); WBC 9.4 k/uL (3.8-10.6)
[2018-01-09 07:32] LABS: ALT 27 U/L (9-52); AST 20 U/L (14-36); Alkaline Phosphatase 45 U/L (38-126); Anion Gap 12 mmol/L; Blood Urea Nitrogen 15 mg/dL (7-17); Calcium 8.5 mg/dL (8.4-10.2); Carbon Dioxide 20 mmol/L (22-30); Chloride 106 mmol/L (98-107); Glucose 91 mg/dL (74-99); Sodium 138 mmol/L (137-145); Total Bilirubin 0.3 mg/dL (0.2-1.3); Total Protein 5.2 g/dL (6.3-8.2)
[2018-01-09 07:34] LABS: Potassium 4.5 mmol/L (3.5-5.1)
[2018-01-09] MEDS: INSULIN ASPART 100 UNIT/ML 1 ML 10 ML VIAL SQ SCH ×4 (07:45→21:23)
--- NOTE | 2018-01-09 08:04 | P.PN ---
Progress Note - Text Postoperative day # 1 status post total knee arthroplasty, on adductor canal perineural catheter placed for postoperative analgesia. Ropivacaine 0.2% 8 mL per hour through ON-Q pump continuous infusion. Pain is well controlled. On visual analog scale 3/10 Patient is taking PRN oral pain medications. Catheter site: Looks Ok. There is no erythema or tenderness. Continue with the current pain management plan and will follow.
[2018-01-09] MEDS: traMADol 50 MG TAB PO SCH ×4 (08:23→21:05)
[2018-01-09] MEDS: glipiZIDE 5 MG TAB PO SCH ×2 (08:23→20:36)
[2018-01-09] MEDS: MELOXICAM 7.5 MG TAB PO SCH (08:23)
[2018-01-09] MEDS: ENOXAPARIN 30 MG/0.3 ML SYRINGE SQ SCH ×2 (08:23→20:35)
[2018-01-09] MEDS: metFORMIN 500 MG TAB PO SCH ×2 (08:24→18:09)
[2018-01-09] MEDS: HYDROCHLOROTHIAZIDE 25 MG TAB PO SCH (08:24)
[2018-01-09] MEDS: FAMOTIDINE 20 MG TAB PO SCH (08:24)
[2018-01-09] MEDS: MOMETASONE INHALATION SCH ×2 (08:40→19:57)
[2018-01-09] MEDS: FORMOTEROL INHALATION SCH ×2 (08:40→19:57)
[2018-01-09 11:25] LABS: Glucose,Whole Blood 105 mg/dL (75-99)
[2018-01-09] MEDS: ONDANSETRON 4 MG/2 ML VIAL IVP PRN ×2 (12:07→19:00)
--- NOTE | 2018-01-09 13:33 | P.PN ---
Subjective Progress Note Date: 01/09/18 Principal diagnosis: Status post right total knee arthroplasty Patient seen today resting in her hospital bed, her daughters present at bedside. She denies any acute pain. She did have a bout of nausea and vomiting this morning after ambulating. She feels fine now. She denies any headaches, lightheadedness, chest pain or shortness of breath. Objective - Vital Signs Vital signs: Vital Signs Temp 97.9 F 01/09/18 06:57 Pulse 56 L 01/09/18 12:42 Resp 14 01/09/18 12:33 BP 105/60 01/09/18 12:33 Pulse Ox 97 01/09/18 12:33 Intake & Output 01/08/18 01/09/18 01/09/18 18:59 06:59 18:59 Intake Total 1001 1492 180 Output Total 45 Balance 956 1492 180 Weight 69.853 kg Intake: IV 1001 412 Sodium Chloride 0.9% 1, 200 412 000 ml @ 50 mls/hr IV . Q20H [facility] Rx#:[id number] Oral 1080 180 Output: Estimated Blood Loss 45 Other: Voiding Method Toilet # Voids 1 2 # Bowel Movements 0 - Exam Right lower extremity: Incision is clean, dry, and intact. The prineo tape is in good condition. There is minimal soft tissue swelling and ecchymosis surrounding the medial and lateral aspects of the incision. Calf is soft, no tenderness with palpation. Plantar flexion, dorsiflexion, EHL, FHL are intact. Sensory exam to light touch throughout the extremity is intact, dorsal pedis pulses 2+. - Labs CBC & Chem 7: 01/09/18 06:49 01/09/18 06:49 Labs: Abnormal Lab Results - Last 24 Hours (Table) 01/08/18 01/08/18 01/09/18 Range/Units 17:02 20:42 06:49 Carbon Dioxide 20 L (22-30) mmol/L Creatinine 0.49 L (0.52-1.04) mg/dL POC Glucose (mg/dL) 208 H 122 H (75-99) mg/dL Total Protein 5.2 L (6.3-8.2) g/dL Albumin 3.0 L (3.5-5.0) g/dL 01/09/18 Range/Units 11:22 Carbon Dioxide (22-30) mmol/L Creatinine (0.52-1.04) mg/dL POC Glucose (mg/dL) 105 H (75-99) mg/dL Total Protein (6.3-8.2) g/dL Albumin (3.5-5.0) g/dL Assessment and Plan Plan: Assessment: 1. Postop day #1 status post right total knee arthroplasty Plan: 1. Pain control, continue supportive oral medication. Picture patient eats before taking the medication help prevent possible nausea and vomiting 2. GI and DVT prophylaxis, continue subcu medication during inpatient stay. She will be discharged home on aspirin 325 mg twice a day 3. Wound care instructions were discussed 4. Current incentive spirometer 5. Medical recommendations 6. Discharge planning: Patient likely be discharged home tomorrow Time with Patient: Less than 30
[2018-01-09 14:13] LABS: Hemoglobin A1C 6.3 % (4.0-6.0)
[2018-01-09 16:48] LABS: Glucose,Whole Blood 142 mg/dL (75-99)
[2018-01-09] MEDS: SENNOSIDES-DOCUSATE SODIUM 1 EACH TAB PO SCH (20:33)
[2018-01-09] MEDS: TRAVOPROST BOTH EYES SCH (20:34)
[2018-01-09] MEDS: MECLIZINE 25 MG TAB PO PRN (20:45)
[2018-01-09 20:58] LABS: Glucose,Whole Blood 157 mg/dL (75-99)
--- NOTE | 2018-01-09 23:19 | P.PN ---
Subjective Progress Note Date: 01/09/18 Principal diagnosis: This is a continuing progress note on a 77-year-old white female with status post knee repair. The patient is doing quite well. She has not underlying history of hypertension. Pain is fairly well controlled. She seems to tolerate rehab. Otherwise, no new complaints are stated. No significant nausea or vomiting. Objective - Vital Signs Vital signs: Vital Signs Temp 98.1 F 01/09/18 19:04 Pulse 71 01/09/18 19:04 Resp 16 01/09/18 19:04 BP 143/68 01/09/18 19:04 Pulse Ox 95 01/09/18 19:04 Intake & Output 01/09/18 01/09/18 01/10/18 06:59 18:59 06:59 Intake Total 1492 330 Balance 1492 330 Intake: IV 412 Sodium Chloride 0.9% 1, 412 000 ml @ 50 mls/hr IV . Q20H [facility] Rx#:[id number] Oral 1080 330 Other: Voiding Method Toilet # Voids 2 2 # Bowel Movements 0 - Constitutional General appearance: Present: average body habitus - EENT Eyes: Absent: abnormal pupil - Respiratory Respiratory: bilateral: CTA - Gastrointestinal General gastrointestinal: Present: soft. Absent: tenderness - Neurologic Neurologic: Present: CNII-XII intact. Absent: focal deficits - Psychiatric Psychiatric: Present: A&O x's 3, appropriate affect, intact judgment & insight - Labs CBC & Chem 7: 01/09/18 06:49 01/09/18 06:49 Labs: Abnormal Lab Results - Last 24 Hours (Table) 01/09/18 01/09/18 01/09/18 Range/Units 06:49 06:49 11:22 Carbon Dioxide 20 L (22-30) mmol/L Creatinine 0.49 L (0.52-1.04) mg/dL POC Glucose (mg/dL) 105 H (75-99) mg/dL Hemoglobin A1c 6.3 H (4.0-6.0) % Total Protein 5.2 L (6.3-8.2) g/dL Albumin 3.0 L (3.5-5.0) g/dL 01/09/18 01/09/18 Range/Units 16:41 20:53 Carbon Dioxide (22-30) mmol/L Creatinine (0.52-1.04) mg/dL POC Glucose (mg/dL) 142 H 157 H (75-99) mg/dL Hemoglobin A1c (4.0-6.0) % Total Protein (6.3-8.2) g/dL Albumin (3.5-5.0) g/dL Assessment and Plan (1) Primary osteoarthritis of knee Current Visit: Yes Status: Acute Code(s): M17.10 - UNILATERAL PRIMARY OSTEOARTHRITIS, UNSPECIFIED KNEE SNOMED Code(s): 355210475 (2) Asthma Current Visit: No Status: Chronic Code(s): J45.909 - UNSPECIFIED ASTHMA, UNCOMPLICATED SNOMED Code(s): 093493309 (3) Diabetes Status: Chronic Code(s): E11.9 - TYPE 2 DIABETES MELLITUS WITHOUT COMPLICATIONS SNOMED Code(s): 43488035 Plan: Continue current regimen of treatment. CBC is pending this morning. We will continue to follow appropriately with medical management. Anticipate discharge in a 24-48 hours if the patient continues her current trajectory of tolerating rehab and fairly well pain control. Time with Patient: Less than 30
[2018-01-10] MEDS: SODIUM CHLORIDE 0.9% 1,000 ML IV SCH ×3 (02:21→22:22)
[2018-01-10] MEDS: LACTATED RINGERS 1,000 ML IV SCH (05:44)
[2018-01-10] MEDS: LEVOTHYROXINE 137 MCG TAB PO SCH (05:44)
[2018-01-10] MEDS: traMADol 50 MG TAB PO SCH (06:37)
[2018-01-10 07:00] LABS: Glucose,Whole Blood 105 mg/dL (75-99)
[2018-01-10] MEDS: FORMOTEROL INHALATION SCH ×2 (07:25→20:42)
[2018-01-10] MEDS: MOMETASONE INHALATION SCH ×2 (07:25→20:42)
[2018-01-10] MEDS: HYDROcodone/APAP 7.5-325MG 1 EACH TAB PO PRN ×2 (08:11→16:07)
[2018-01-10] MEDS: hydrOXYzine PAMOATE 25 MG CAP PO PRN (08:12)
[2018-01-10] MEDS: ENOXAPARIN 30 MG/0.3 ML SYRINGE SQ SCH ×2 (09:21→22:21)
[2018-01-10] MEDS: FAMOTIDINE 20 MG TAB PO SCH (09:22)
[2018-01-10] MEDS: glipiZIDE 5 MG TAB PO SCH ×2 (09:22→20:52)
[2018-01-10] MEDS: HYDROCHLOROTHIAZIDE 25 MG TAB PO SCH (09:22)
[2018-01-10] MEDS: metFORMIN 500 MG TAB PO SCH ×2 (09:22→20:50)
[2018-01-10] MEDS: INSULIN ASPART 100 UNIT/ML 1 ML 10 ML VIAL SQ SCH ×4 (09:22→22:21)
[2018-01-10] MEDS: MELOXICAM 7.5 MG TAB PO SCH (09:22)
[2018-01-10] MEDS ORDERED: MORPHINE ORAL SOLN 10 MG/5 ML CUP PO PRN ×3 (10:06→10:07)
--- NOTE | 2018-01-10 11:18 | P.PN ---
Subjective Progress Note Date: 01/10/18 Principal diagnosis: Status post right total knee arthroplasty Patient seen today resting in her hospital bed. She denies any acute pain. She continues to have slight nausea, and is improved since yesterday. She denies any headaches, lightheadedness, chest pain or shortness of breath. Objective - Vital Signs Vital signs: Vital Signs Temp 98.4 F 01/10/18 07:07 Pulse 85 01/10/18 07:07 Resp 16 01/10/18 07:07 BP 134/52 01/10/18 07:07 Pulse Ox 95 01/10/18 07:07 Intake & Output 01/09/18 01/10/18 01/10/18 18:59 06:59 18:59 Intake Total 330 180 Balance 330 180 Intake: Oral 330 180 Other: # Voids 2 1 2 # Bowel Movements 0 - Exam Right lower extremity: Incision is clean, dry, and intact. The prineo tape is in good condition. There is minimal soft tissue swelling and ecchymosis surrounding the medial and lateral aspects of the incision. Calf is soft, no tenderness with palpation. Plantar flexion, dorsiflexion, EHL, FHL are intact. Sensory exam to light touch throughout the extremity is intact, dorsal pedis pulses 2+. - Labs CBC & Chem 7: 01/09/18 06:49 01/09/18 06:49 Labs: Abnormal Lab Results - Last 24 Hours (Table) 01/09/18 01/09/18 01/09/18 Range/Units 06:49 11:22 16:41 POC Glucose (mg/dL) 105 H 142 H (75-99) mg/dL Hemoglobin A1c 6.3 H (4.0-6.0) % 01/09/18 01/10/18 Range/Units 20:53 06:46 POC Glucose (mg/dL) 157 H 105 H (75-99) mg/dL Hemoglobin A1c (4.0-6.0) % Assessment and Plan Plan: Assessment: 1. Postop day #2 status post right total knee arthroplasty Plan: 1. Pain control, continue oral medication. 2. GI and DVT prophylaxis, she will be discharged home on aspirin 325 mg twice a day 3. Wound care instructions were discussed 4. Current incentive spirometer 5. Medical recommendations 6. Discharge planning: Patient likely be discharged home today
--- NOTE | 2018-01-10 11:22 | P.DS ---
Providers Date of admission: 01/08/18 05:34 Expected date of discharge: 01/10/18 Attending physician: Tim Glynn Consults: 01/08/18 09:27 Consult Physician Routine Consulting Provider: Tarun Lindsay Consult Reason/Comments: Medical management Do you want consulting provider notified?: Yes Primary care physician: Tarun Lindsay Hospital Course: Date of admission: 01/08/2018 Date of discharge: 01/10/2018 Admission diagnosis: Status post right total knee arthroplasty Discharge diagnosis: Same Attending physician: Dr. Glynn Surgical procedures: Right total knee arthroplasty Brief history: Patient is a 77-year-old female with a history of progressive primary right knee osteoarthritis. At this point patient has failed conservative treatment measures and has opted to proceed with a elective right total knee arthroplasty. Hospital course: Details of patient's surgery can be found in operative report. Patient tolerated the procedure well and was subsequently transported to orthopedic floor. Patient's orthopeidc and medical care was provided daily. Patient had daily laboratory tests performed for evaluation of overall blood counts. Patient had daily physical therapy to include strengthening range of motion as well as education with walker ambulation. Patient had daily CPM usage as part of their physical therapy program. Patient was treated with Lovenox for their postoperative DVT prophylaxis during their inpatient stay. Patient was noted to have a relatively uneventful postoperative course. Patient reported satisfactory pain control with oral pain medications by postoperative day 0. Patient showed satisfactory progress with physical therapy. Patient moved steadily through the program and had no difficulty meeting the goals by postoperative day 2. Given patient's otherwise satisfactory course and having met physical therapy goals, plan is to discharge patient home on postoperative day 2. Discharge condition/disposition: Patient will be discharged home in stable condition. Discharge medications: Instructions are given on resumption of patient's normal daily medications per primary care recommendation, in addition patient will be prescribed [place] 5 mg/325 mg, Vistaril 25 mg, Pepcid 20 mg, Colace 100 mg, aspirin 325 mg. Discharge instructions: 1. Wound care and infection precautions, keep incision dry and covered while showering, no lotions, creams, moisturizers. No soaking, tubs, pools, hottubs. Do not scrub over the incision. 2. Weight-bear as tolerated] with walker / cane until follow-up. 3. Ice and elevate when necessary. Do not exceed 20 minutes per hour with ice pack. 4. Utilize compression sleeve until seen at first follow up appointment. 5. Visiting nursing care. 6. Home physical therapy [including home CPM]. 7. Pain meds and anticoagulants per prescription. 8. Pain medication has potential to cause constipation. Increase oral fluid and fiber intake. Contact primary care provider if you have not had a bowel movement within 48 hours after discharge 9. No anti-inflammatory medication until discussed at first post operative visit, this including Motrin, Aleve, Mobic, Diclofenac. 10. Follow up in office at 2 weeks postop with Rosalino Pizarro PA-C 11. Follow up with your primary care doctor 7-10 days after discharge. 12. Contact [facility] with any questions, . Procedures: Right total knee arthroplasty Patient Condition at Discharge: Good Plan - Discharge Summary Discharge Rx Participant: Yes New Discharge Prescriptions: New Aspirin 325 mg PO BID #60 tab Docusate [Colace] 100 mg PO DAILY #30 capsule Hydrocodone/Acetaminophen [[place] 5-325] 1 each PO Q6HR PRN #40 tab PRN Reason: Pain hydrOXYzine PAMOATE [Vistaril] 25 mg PO Q6HR #40 capsule No Action metFORMIN HCL [Glucophage] 1,000 mg PO BID-W/MEALS Levothyroxine Sodium [Synthroid] 137 mcg PO DAILY Hydrochlorothiazide 25 mg PO DAILY Albuterol Nebulized [Ventolin Nebulized] 2.5 mg INHALATION RT-TID PRN PRN Reason: Dyspnea Albuterol Inhaler [Ventolin Hfa Inhaler] 2 puff INHALATION RT-QID PRN PRN Reason: Shortness Of Breath glipiZIDE XL [Glucotrol Xl] 5 mg PO BID Mometasone/Formoterol [Dulera 200 Mcg/5 Mcg Inhaler] 2 puff INHALATION RT-BID ALPRAZolam [Xanax] 0.25 mg PO BID PRN PRN Reason: Anxiety Travoprost [Travatan Z 0.004%] 1 drop BOTH EYES HS Meclizine [Antivert] 25 mg PO BID PRN PRN Reason: Vertigo predniSONE 50 mg PO DAILY PRN PRN Reason: ASTHMA FLARE UP Discharge Medication List Levothyroxine Sodium [Synthroid] 137 mcg PO DAILY 09/22/15 [History] metFORMIN HCL [Glucophage] 1,000 mg PO BID-W/MEALS 09/22/15 [History] Hydrochlorothiazide 25 mg PO DAILY 11/02/15 [History] Albuterol Inhaler [Ventolin Hfa Inhaler] 2 puff INHALATION RT-QID PRN 03/18/17 [ History] Albuterol Nebulized [Ventolin Nebulized] 2.5 mg INHALATION RT-TID PRN 03/18/17 [ History] glipiZIDE XL [Glucotrol Xl] 5 mg PO BID 03/18/17 [History] ALPRAZolam [Xanax] 0.25 mg PO BID PRN 12/28/17 [History] Meclizine [Antivert] 25 mg PO BID PRN 12/28/17 [History] Mometasone/Formoterol [Dulera 200 Mcg/5 Mcg Inhaler] 2 puff INHALATION RT-BID [History] Travoprost [Travatan Z 0.004%] 1 drop BOTH EYES HS 12/28/17 [History] predniSONE 50 mg PO DAILY PRN 01/08/18 [History] Aspirin 325 mg PO BID #60 tab 01/10/18 [Rx] Docusate [Colace] 100 mg PO DAILY #30 capsule 01/10/18 [Rx] Hydrocodone/Acetaminophen [[place] 5-325] 1 each PO Q6HR PRN #40 tab 01/10/18 [Rx] hydrOXYzine PAMOATE [Vistaril] 25 mg PO Q6HR #40 capsule 01/10/18 [Rx] Follow up Appointment(s)/Referral(s): Tarun Lindsay MD [Primary Care Provider] - 01/19/18 10:40 am Tim Glynn DO [Doctor of Osteopathic Medicine] - 01/24/18 2:30 pm [facility], [NON-STAFF] - Activity/Diet/Wound Care/Special Instructions: Orthopedic Discharge Instructions: 1. Wound care and infection precautions, keep incision dry and covered while showering, no lotions, creams, moisturizers. No soaking, pools, hot tubs. Do not scrub over incision. 2. Weight-bear as tolerated with walker / cane until follow-up. 3. Ice and elevate when necessary. Do not exceed 20 minutes per hour with ice pack. 4. Utilize compression sleeve until seen at first follow up appointment. 5. Visiting nursing care. 6. Home physical therapy including home CPM. 7. Pain meds and anticoagulants per prescription. 8. Pain medication has potential to cause constipation. Increase oral fluid and fiber intake. Contact primary care provider if you have not had a bowel movement within 48 hours after discharge. 9. No anti-inflammatory medication until discussed at first post operative visit, this including Motrin, Aleve, Mobic, Diclofenac. 10. Follow up in office at 2 weeks postop with Rosalino Pizarro PA-C 11. Follow up with your primary care doctor 7-10 days after discharge. 12. Contact [facility] with any questions, . Discharge Disposition: HOME WITH HOME HEALTH SERVICES
[2018-01-10 11:26] LABS: Glucose,Whole Blood 133 mg/dL (75-99)
[2018-01-10] MEDS: MECLIZINE 25 MG TAB PO PRN (12:13)
[2018-01-10] MEDS ORDERED: ACETAMINOPHEN TAB 500 MG TAB PO PRN (13:00)
[2018-01-10] MEDS: ALPRAZolam 0.25 MG TAB PO PRN ×2 (13:18→22:21)
[2018-01-10] MEDS ORDERED: PROCHLORPERAZINE 5 MG TAB PO PRN (14:36)
[2018-01-10 16:59] LABS: Glucose,Whole Blood 139 mg/dL (75-99)
[2018-01-10 20:29] LABS: Glucose,Whole Blood 108 mg/dL (75-99)
[2018-01-10] MEDS: SENNOSIDES-DOCUSATE SODIUM 1 EACH TAB PO SCH (22:21)
[2018-01-10] MEDS: TRAVOPROST BOTH EYES SCH (22:21)
[2018-01-11] MEDS: HYDROcodone/APAP 7.5-325MG 1 EACH TAB PO PRN ×2 (00:52→10:55)
[2018-01-11] MEDS: hydrOXYzine PAMOATE 25 MG CAP PO PRN (00:53)
[2018-01-11 01:04] VITALS: RESP 16
[2018-01-11] MEDS: SODIUM CHLORIDE 0.9% 1,000 ML IV SCH (04:54)
[2018-01-11] MEDS: LACTATED RINGERS 1,000 ML IV SCH (06:27)
[2018-01-11] MEDS: LEVOTHYROXINE 137 MCG TAB PO SCH (06:27)
[2018-01-11 06:56] LABS: Glucose,Whole Blood 117 mg/dL (75-99)
[2018-01-11 07:28] LABS: Basophils % (A) 0 %; Eosinophils # (A) 0.1 k/uL (0-0.7); Eosinophils % (A) 2 %; HCT 34.5 % (34.0-46.0); HGB 11.5 gm/dL (11.4-16.0); Lymphocytes # (A) 1.7 k/uL (1.0-4.8); Lymphocytes % (A) 26 %; MCH 28.4 pg (25.0-35.0); MCHC 33.2 g/dL (31.0-37.0); MCV 85.7 fL (80.0-100.0); Mean Platelet Volume 7.9; Monocytes # (A) 0.6 k/uL (0-1.0); Monocytes % (A) 9 %; Neutrophils # (A) 4.1 k/uL (1.3-7.7); Neutrophils % (A) 61 %; Platelet Count 241 k/uL (150-450); RBC 4.03 m/uL (3.80-5.40); RDW 13.5 % (11.5-15.5); WBC 6.7 k/uL (3.8-10.6)
[2018-01-11] MEDS: FORMOTEROL INHALATION SCH (07:30)
[2018-01-11] MEDS: MOMETASONE INHALATION SCH (07:30)
--- NOTE | 2018-01-11 07:42 | P.PN ---
Subjective Progress Note Date: 01/10/18 Principal diagnosis: This is a continuing progress note on a 77-year-old white female with status post knee repair. The patient is doing quite well. She has not underlying history of hypertension. Pain is fairly well controlled. She seems to tolerate rehab. Otherwise, no new complaints are stated. There is some significant nausea today. No fever or chills Objective - Vital Signs Vital signs: Vital Signs Temp 97.0 F L 01/11/18 01:02 Pulse 80 01/11/18 01:02 Resp 16 01/11/18 01:02 BP 166/70 01/11/18 01:02 Pulse Ox 95 01/11/18 01:02 Intake & Output 01/10/18 01/11/18 01/11/18 18:59 06:59 18:59 Intake Total 680 Balance 680 Intake: Intake, IV Titration 150 Amount Sodium Chloride 0.9% 1, 150 000 ml @ 75 mls/hr IV . [id number] YESENIA Rx#:[id number] Oral 530 Other: # Voids 2 2 - Constitutional General appearance: Present: average body habitus - EENT Eyes: Absent: abnormal pupil - Respiratory Respiratory: bilateral: CTA - Cardiovascular Rhythm: regular Heart sounds: normal: S1, S2 Abnormal Heart Sounds: Absent: S3 Gallop - Gastrointestinal General gastrointestinal: Present: soft. Absent: tenderness - Labs CBC & Chem 7: 01/11/18 06:34 01/09/18 06:49 Labs: Abnormal Lab Results - Last 24 Hours (Table) 01/10/18 01/10/18 01/10/18 Range/Units 11:02 16:53 20:27 POC Glucose (mg/dL) 133 H 139 H 108 H (75-99) mg/dL 01/11/18 Range/Units 06:49 POC Glucose (mg/dL) 117 H (75-99) mg/dL Assessment and Plan (1) Primary osteoarthritis of knee Current Visit: Yes Status: Acute Code(s): M17.10 - UNILATERAL PRIMARY OSTEOARTHRITIS, UNSPECIFIED KNEE SNOMED Code(s): 120657622 (2) Asthma Current Visit: No Status: Chronic Code(s): J45.909 - UNSPECIFIED ASTHMA, UNCOMPLICATED SNOMED Code(s): 722723393 (3) Diabetes Status: Chronic Code(s): E11.9 - TYPE 2 DIABETES MELLITUS WITHOUT COMPLICATIONS SNOMED Code(s): 56361020 Plan: Continue current regimen of treatment. CBC is pending this morning. We will continue to follow appropriately with medical management. Anticipate discharge in a 24-48 hours if the patient continues her current trajectory of tolerating rehab and fairly well pain control.
--- NOTE | 2018-01-11 07:43 | P.PN ---
Subjective Progress Note Date: 01/11/18 Principal diagnosis: This is a continuing progress note on a 77-year-old white female with status post knee repair. The patient is doing quite well. She has not underlying history of hypertension. Pain is fairly well controlled. She seems to tolerate rehab. This continue progress on a 77-year-old white female essentially admitted for knee arthroplasty the patient is scheduled for discharge today is now her nausea is stabilizing. No fever or chills are stated. Appetite is returning back to normal. Pain is nominal. Objective - Vital Signs Vital signs: Vital Signs Temp 97.0 F L 01/11/18 01:02 Pulse 80 01/11/18 01:02 Resp 16 01/11/18 01:02 BP 166/70 01/11/18 01:02 Pulse Ox 95 01/11/18 01:02 Intake & Output 01/10/18 01/11/18 01/11/18 18:59 06:59 18:59 Intake Total 680 Balance 680 Intake: Intake, IV Titration 150 Amount Sodium Chloride 0.9% 1, 150 000 ml @ 75 mls/hr IV . [id number] YESENIA Rx#:[id number] Oral 530 Other: # Voids 2 2 - Constitutional General appearance: Present: average body habitus - EENT Eyes: Absent: abnormal pupil - Respiratory Respiratory: bilateral: CTA - Cardiovascular Rhythm: regular Heart sounds: normal: S1, S2 Abnormal Heart Sounds: Absent: S3 Gallop - Gastrointestinal General gastrointestinal: Present: soft. Absent: tenderness - Labs CBC & Chem 7: 01/11/18 06:34 01/09/18 06:49 Labs: Abnormal Lab Results - Last 24 Hours (Table) 01/10/18 01/10/18 01/10/18 Range/Units 11:02 16:53 20:27 POC Glucose (mg/dL) 133 H 139 H 108 H (75-99) mg/dL 01/11/18 Range/Units 06:49 POC Glucose (mg/dL) 117 H (75-99) mg/dL Assessment and Plan (1) Primary osteoarthritis of knee Current Visit: Yes Status: Acute Code(s): M17.10 - UNILATERAL PRIMARY OSTEOARTHRITIS, UNSPECIFIED KNEE SNOMED Code(s): 520477900 (2) Asthma Current Visit: No Status: Chronic Code(s): J45.909 - UNSPECIFIED ASTHMA, UNCOMPLICATED SNOMED Code(s): 234622556 (3) Diabetes Status: Chronic Code(s): E11.9 - TYPE 2 DIABETES MELLITUS WITHOUT COMPLICATIONS SNOMED Code(s): 39486809 Plan: The patient will be discharged once cleared by orthopedics. The patient will follow-up with me in about 7-10 days. Continue current regimen of medication. Time with Patient: Less than 30
[2018-01-11] MEDS: INSULIN ASPART 100 UNIT/ML 1 ML 10 ML VIAL SQ SCH (08:03)
[2018-01-11 08:53] VITALS: BP 139/58; PULSE 67; TEMP 98.1
[2018-01-11] MEDS: metFORMIN 500 MG TAB PO SCH (10:32)
[2018-01-11] MEDS: MELOXICAM 7.5 MG TAB PO SCH (10:33)
[2018-01-11] MEDS: ENOXAPARIN 30 MG/0.3 ML SYRINGE SQ SCH (10:33)
[2018-01-11] MEDS: glipiZIDE 5 MG TAB PO SCH (10:35)
[2018-01-11] MEDS: FAMOTIDINE 20 MG TAB PO SCH (10:35)
[2018-01-11] MEDS: HYDROCHLOROTHIAZIDE 25 MG TAB PO SCH (10:36)
--- NOTE | 2018-01-11 11:08 | P.PN ---
Progress Note - Text Progress Note Date: 01/11/18 Patient is seen lying in bed comfortable. Patient reports some knee discomfort although controlled with pain medication. Patient feels improved today and wanted to be discharged. Incision stable. Homans negative, Jose negative. Distal neurovascular exam intact. Impression: Status post right total knee arthroplasty Plan: Discharge to home today with appropriate discharge instructions
== END 2018-01-11 12:45 | disposition home health service (06) | DRG 470 ==
LOC: 2ORMAIN 05:34 → 3SUR 09:48
PROVIDERS: ADMIT Orthopaedic Surgery; ATTEND Orthopaedic Surgery
PROC: 0SRC0J9 Replacement of Right Knee Joint with Synthetic Substitute, Cemented, Open Approach (ICD-10-PCS; principal; 2018-01-08 07:30)
DX: M17.11 Unilateral primary osteoarthritis, right knee (principal); E11.9 Type 2 diabetes mellitus without complications; I10 Essential (primary) hypertension; J45.909 Unspecified asthma, uncomplicated; H40.9 Unspecified glaucoma; E89.0 Postprocedural hypothyroidism; Z96.641 Presence of right artificial hip joint; M54.9 Dorsalgia, unspecified; Z90.710 Acquired absence of both cervix and uterus; Z90.89 Acquired absence of other organs; Z79.84 Long term (current) use of oral hypoglycemic drugs; Z79.899 Other long term (current) drug therapy; Z79.890 Hormone replacement therapy; Z88.2 Allergy status to sulfonamides; Z88.7 Allergy status to serum and vaccine; Z82.49 Family history of ischemic heart disease and other diseases of the circulatory system; Z83.3 Family history of diabetes mellitus; Z83.49 Family history of other endocrine, nutritional and metabolic diseases; Z80.42 Family history of malignant neoplasm of prostate; Z91.010 Allergy to peanuts; Z91.018 Allergy to other foods; Z82.5 Family history of asthma and other chronic lower respiratory diseases
CPT/HCPCS: 80053; 83036; 85025; 88300; 94640

== ENCOUNTER → 2019-07-23 | Outpatient (CLI) | payer MEDICARE, BC ==
[2019-07-23 12:13] LABS: Basophils % (A) 1 %; Eosinophils # (A) 0.3 k/uL (0-0.7); Eosinophils % (A) 3 %; HCT 45.6 % (34.0-46.0); HGB 15.3 gm/dL (11.4-16.0); Lymphocytes # (A) 2.2 k/uL (1.0-4.8); Lymphocytes % (A) 25 %; MCH 30.7 pg (25.0-35.0); MCHC 33.5 g/dL (31.0-37.0); MCV 91.9 fL (80.0-100.0); Mean Platelet Volume 7.2; Monocytes # (A) 0.4 k/uL (0-1.0); Monocytes % (A) 5 %; Neutrophils # (A) 5.9 k/uL (1.3-7.7); Neutrophils % (A) 65 %; Platelet Count 280 k/uL (150-450); RBC 4.97 m/uL (3.80-5.40); RDW 13.6 % (11.5-15.5)
[2019-07-24 12:55] LABS: IgG Subclass 3 47.5 mg/dL (11.0-85.0); IgG Subclass 4 46.3 mg/dL (3.0-175.0)
== END | disposition home or self-care (01) ==
LOC: LABWHC1 10:22
PROVIDERS: ATTEND Allergy & Immunology
DX: D80.1 Nonfamilial hypogammaglobulinemia (principal)
CPT/HCPCS: 36415; 82784; 82787; 85025

== ENCOUNTER → 2020-04-22 | Outpatient (CLI) | payer MEDICARE, BC | END | disposition home or self-care (01) | LOC: LABWHC1 11:06 | PROVIDERS: ATTEND Internal Medicine | DX: J45.20 Mild intermittent asthma, uncomplicated (principal) | CPT/HCPCS: U0003; C9803 ==